=== PATIENT | male | born 1960 | race Caucasian/White ===

== ENCOUNTER → 2020-12-31 11:27 | Outpatient (BNVA) | payer OTHER, SELFPAY | PROVIDERS: Visit Provider Nurse Practitioner Family | DX: Z20.822 Contact with and (suspected) exposure to COVID-19 (principal) | CPT/HCPCS: 87635 ==

== ENCOUNTER 2021-05-27 13:10 | Emergency (ER) | payer OTHER, SELFPAY ==
--- NOTE | 2021-05-27 13:19 | NUR.SHIFT ---
not in waiting room
[2021-05-27 13:33] VITALS: BP 149/76; PULSE 94; RESP 18; TEMP 36.4; O2SAT 100; BMI 30.3
--- NOTE | 2021-05-27 13:49 | XR_ITS ---
WS: [id number] XR wrist RT min 3V* 65832 REASON FOR EXAM: fall, wrist pain FINDINGS: No fracture or focal bone lesion. Joint spaces of the wrist are well preserved. No soft tissue abnormality. XR/XR wrist RT min 3V* [id number] IMPRESSION: No acute abnormality.
--- NOTE | 2021-05-27 13:50 | W.ED.UPPEXIN ---
HPI - Extremity Injury (Upper) General: Chief Complaint: Extremity Injury, Upper Stated Complaint: WC: RUE INJURY Time Seen by Provider: 05/27/21 13:44 Source: patient Mode of arrival: ambulatory Limitations: no limitations History of Present Illness: HPI narrative: Patient is a 60-year-old male who presents to ED today for evaluation of a right wrist injury. Patient is a respiratory therapist at [employer] and states he tripped going into a patient room and fell onto his right wrist. He is reporting some mild discomfort to the joint. No other injury sustained during the fall. MD complaint: injury to: right and wrist Onset (ago): minute(s) Other Extremity Injury: Right: wrist Severity: mild Relieving factors: immobilization Exacerbating factors: movement of extremity Context: fall Associated symptoms: Reports no associated symptoms; Denies neck pain Review of Systems Musc: Reports: joint pain (R wrist); Denies: neck pain, back pain, extremity pain, extremity swelling, joint swelling, joint redness, joint warmth or limited range of motion Neuro: Denies: numbness in extremities or sensory changes Physical Exam Const: COMMON NORMALS: no acute distress, average body habitus, patient oriented x3, no limitations, healthy appearing, alert and well nourished Extremity: GENERAL: Yes normal exam except as noted RIGHT UPPER EXTREMITY: Yes wrist (TTP ulnar wrist) Right wrist: Yes inspection (no swelling or deformities noted), Yes ROM (normal) and Yes neurovascular exam (normal) Neuro: COMMON NORMALS: patient oriented x3, moves all extremities, no focal motor deficits and no sensory deficits noted SENSORIUM/ORIENTATION: Yes alert Skin: COMMON NORMALS: no rashes or lesions noted GENERAL SKIN EXAM: no rashes or lesions noted TRAUMA: no lacerations or abrasions Course Vital Signs: Vital signs: Vital Signs Temperature 97.6 F 05/27/21 13:33 Pulse Rate 94 05/27/21 13:33 Respiratory Rate 18 05/27/21 13:33 Blood Pressure 149/76 05/27/21 13:33 Pulse Oximetry 100 05/27/21 13:33 MDM - Extremity Injury (Upper) Imaging Data^: XR R wrist: My impression: NAD Radiologist's impression: Nikki [address] [place], [place] [address] ReportSigned Patient: Cj Bolton #: [id number]: 1960cct#:[id number]/Sex: 60 / MADM Date: 05/27/21Loc: ERRoom/Bed:Attending Dr: Ordering Provider/Ordering MD: Anabelle Fung Date of Service: 05/27/21 Procedure(s): XR wrist RT min 3V* 71136 Accession Number(s): [id number] Report Number: [id number] WS: [id number] XR wrist RT min 3V* [id number] REASON FOR EXAM: fall, wrist pain FINDINGS: No fracture or focal bone lesion. Joint spaces of the wrist are well preserved. No soft tissue abnormality. XR/XR wrist RT min 3V* 78635 IMPRESSION: No acute abnormality. Dictated By:Chris Zhang Jr MDSigned By:Chris Zhang Jr MDSigned Date/Time:05/27/21 1403DD/ 1401 Discharge Plan Discharge Patient Disposition: Home Clinical Impression: Fall on same level from tripping Right wrist sprain Qualifiers: Encounter type: initial encounter Qualified Code(s): S63.501A - Unspecified sprain of right wrist, initial encounter Condition: Stable Prescriptions: No Action lisinopril-hydrochlorothiazide 10-12.5 mg tablet 1 tab PO DAILY RF: 0 Discharge Orders: Discharge ED (Routine); Ordered 05/27/21 Ordered By: Anabelle Fung Patient Instructions: Wrist Sprain (ED) Activity Restrictions/Additional Instructions: Please follow-up with Worker's Comp. as directed on your discharge paperwork. Coding Level of Care Code ED Wirer Passenger Car for Chg Fwd Exam Expanded Problem Focused
[2021-05-27 14:02] VITALS: BP 134/77; PULSE 80; RESP 18; O2SAT 97
== END 2021-05-27 18:22 | disposition home or self-care (01) ==
PROVIDERS: Emergency Provider Physician Assistant
DX: S63.501A Unspecified sprain of right wrist, initial encounter (principal); W01.0XXA Fall on same level from slipping, tripping and stumbling without subsequent striking against object, initial encounter; Y92.230 Patient room in hospital as the place of occurrence of the external cause; Y99.0 Civilian activity done for income or pay
CPT/HCPCS: 73110; 99282

== ENCOUNTER 2021-07-01 07:44 | Outpatient (CLI) | payer OTHER, SELFPAY ==
[2021-07-01 08:21] LABS: Basophils # 0.1 10^3/uL (0.0-0.1); Eosinophils # 0.2 10^3/uL (0.0-0.8); Eosinophils % 3.5 %; Hematocrit 45.1 % (42.0-52.0); Hemoglobin 15.4 g/dL (11.7-16.6); Lymphocytes # 1.5 10^3/uL (0.8-4.8); Lymphocytes % 23.3 %; Mean Corpuscular HGB Conc 34.1 g/dL (30.0-36.0); Mean Corpuscular Hemoglobin 31.6 pg (28.0-34.0); Mean Corpuscular Volume 92.4 fl (80-94); Mean Platelet Volume 9.7 fL (7.4-10.4); Monocytes # 0.9 10^3/uL (0.2-0.9); Nucleated Red Blood Cells % 0 %; Platelet Count 279 10^3/cmm (130-400); Red Blood Count 4.88 10^6/uL (4.1-5.3); Red Cell Distribution Width 13.3 % (12.1-15.1); White Blood Count 6.2 10^3/uL (4.0-10.0)
[2021-07-01 08:51] LABS: Alanine Aminotransferase 13 U/L (0-41); Albumin Level 4.5 g/dL (3.5-5.2); Alkaline Phosphatase 74 IU/L (40-130); Anion Gap 13.4 (5-19); Aspartate Amino Transferase 17 U/L (0-40); Blood Urea Nitrogen 14 mg/dL (8-23); Calcium 9.1 mg/dL (8.5-10.5); Carbon Dioxide 29 mmol/L (22-29); Chloride 93 mmol/L (98-107); Globulin 2.5 g/dL (1.3-4.6); Glucose 97 mg/dL (65-115); Osmolality Calculated 272 mOsm/kg (285-295); Potassium 4.4 mmol/L (3.5-5.1); Sodium 131 mmol/L (136-145); Thyroid Stimulating Hormone 0.91 uIU/mL (0.27-4.20); Total Bilirubin 0.5 mg/dL (0.15-1.2)
== END 2021-07-01 07:45 | disposition home or self-care (01) ==
LOC: LAB 07:48
PROVIDERS: Visit Provider Family Medicine
DX: Z13.29 Encounter for screening for other suspected endocrine disorder (principal); Z12.11 Encounter for screening for malignant neoplasm of colon; I10 Essential (primary) hypertension; E78.5 Hyperlipidemia, unspecified; Z79.899 Other long term (current) drug therapy
CPT/HCPCS: 80053; 84153; 84443; 85025

== ENCOUNTER 2023-09-01 07:35 | Outpatient (CLI) | payer OTHER, SELFPAY ==
[2023-09-01 08:04] LABS: Basophils # 0.1 10^3/uL (0.0-0.1); Basophils % 1.2 %; Eosinophils # 0.2 10^3/uL (0.0-0.8); Eosinophils % 3.9 %; Hematocrit 46.4 % (37-53); Lymphocytes # 2.4 10^3/uL (0.8-4.8); Mean Corpuscular HGB Conc 34.3 g/dL (30-55); Mean Corpuscular Hemoglobin 30.8 pg (27-33); Mean Corpuscular Volume 89.7 fl (82-101); Mean Platelet Volume 9.3 fL (7.4-10.4); Monocytes # 0.7 10^3/uL (0.2-0.9); Monocytes % 12.3 %; Neutrophils # 2.43 10^3/uL (1.8-7.7); Neutrophils % 41.4 %; Nucleated Red Blood Cells % 0 %; Platelet Count 269 10^3/cmm (157-399); Red Blood Count 5.17 10^6/uL (3.85-5.65); Red Cell Distribution Width 13.2 % (12.1-15.1); White Blood Count 5.86 10^3/uL (3.29-11.43)
[2023-09-01 08:37] LABS: Alanine Aminotransferase 14 U/L (0-41); Albumin Level 4.5 g/dL (3.5-5.2); Alkaline Phosphatase 69 U/L (40-130); Anion Gap 13.6 (5-19); Aspartate Amino Transferase 25 U/L (0-40); Blood Urea Nitrogen 9 mg/dL (8-23); Calcium 9.2 mg/dL (8.5-10.5); Carbon Dioxide 28 mmol/L (22-29); Chloride 98 mmol/L (98-107); Chol HDL Ratio 3.73 mg/dL (1.0-5.00); Cholesterol 209 mg/dL (0-200); Globulin 2.8 g/dL (1.3-4.6); Glomerular Filtration Rate 136.5 mL/min (90-130); Glucose 101 mg/dL (65-115); HDL Cholesterol 56 mg/dL (60-100); LDL Cholesterol Calculated 135 mg/dL (50-129); LDL HDL Ratio 2.41 RATIO (0.00-3.22); Osmolality Calculated 279 mOsm/kg (285-295); Potassium 4.6 mmol/L (3.5-5.1); Prostate Specific Antigen Scr 0.87 ng/mL (0-4); Sodium 135 mmol/L (136-145); Thyroid Stimulating Hormone 1.24 uIU/mL (0.27-4.20); Total Bilirubin 0.4 mg/dL (0.15-1.2); Total Protein 7.3 g/dL (6.6-8.7); Triglycerides 89 mg/dL (0-150)
== END 2023-09-01 07:36 | disposition home or self-care (01) ==
LOC: LAB 07:46
PROVIDERS: Visit Provider Family Medicine
DX: I10 Essential (primary) hypertension (principal); Z12.5 Encounter for screening for malignant neoplasm of prostate; Z13.6 Encounter for screening for cardiovascular disorders
CPT/HCPCS: 36415; 80053; 80061; 84443; 85025; G0103